=== PATIENT | male | born 1965 | race Caucasian/White ===

== ENCOUNTER → 2017-02-23 | Outpatient (CLI) | payer BC | END | disposition home or self-care (01) | LOC: LAB 09:08 | PROVIDERS: ATTEND Internal Medicine Cardiovascular Disease | DX: R53.81 Other malaise (principal) | CPT/HCPCS: 36415; 84403 ==

== ENCOUNTER → 2017-04-13 | Outpatient (CLI) | payer BC ==
[2017-04-13 12:28] LABS: Basophils # (auto) 0 uL; Basophils % (auto) 0.6 % (0.0-2.0); Eosinophils # (auto) 0.1 uL; Eosinophils % (auto) 2.5 % (0.0-7.0); Hematocrit 53.5 % (41.0-53.0); Lymphocytes # (auto) 1.4 uL; Mean Corpuscular Hemoglobin 30.3 pg (28.0-32.0); Mean Corpuscular Hgb Conc. 33.6 g/dL (32.0-36.0); Mean Platelet Volume 10.4 fL (7.4-10.4); Monocytes # (auto) 0.3 uL; Neutrophils % (auto) 61.9 % (37.0-80.0); Platelet Count (auto) 174 10^3/uL (140-450); White Blood Cell 4.9 10^3/uL (4.4-10.8)
[2017-04-13 12:53] LABS: BUN/Creatinine Ratio 18.1; Bilirubin, Direct 0.1 mg/dL (0-0.2); Bilirubin, Total 0.7 mg/dL (0.2-1.0); Calcium 9.3 mg/dL (8.5-10.1); Potassium 4.3 mmol/L (3.5-5.1); Total Protein 7.7 g/dL (6.4-8.2)
== END | disposition home or self-care (01) ==
LOC: Rad HDHVI 08:06
PROVIDERS: ATTEND Internal Medicine Cardiovascular Disease
DX: I10 Essential (primary) hypertension (principal); E78.00 Pure hypercholesterolemia, unspecified; K74.1 Hepatic sclerosis; E11.9 Type 2 diabetes mellitus without complications; R97.20 Elevated prostate specific antigen [PSA]; R53.81 Other malaise; E03.9 Hypothyroidism, unspecified; D64.9 Anemia, unspecified; E55.9 Vitamin D deficiency, unspecified; N39.0 Urinary tract infection, site not specified
CPT/HCPCS: 36415; 71020; 80048; 80061; 80076; 82306; 83036; 84153; 84403; 84443; 85025; 93306

== ENCOUNTER → 2017-07-11 | Outpatient (CLI) | payer BC ==
[2017-07-11 12:17] LABS: Basophils # (auto) 0 uL; Basophils % (auto) 0.4 % (0.0-2.0); CONDITION Y; DEFINITIVE SEE PRINTOUT; Eosinophils # (auto) 0.2 uL; Hemoglobin 18.9 g/dL (13.5-17.5); Lymphocytes # (auto) 1.8 uL; Lymphocytes % (auto) 29.7 % (10.0-50.0); Mean Corpuscular Hgb Conc. 33.7 g/dL (32.0-36.0); Mean Corpuscular Volume 92.1 fL (80.0-100.0); Mean Platelet Volume 11.1 fL (7.4-10.4); Monocytes # (auto) 0.5 uL; Monocytes % (auto) 8.9 % (0.0-12.0); Neutrophils # (auto) 3.4 uL; Platelet Count (auto) 175 10^3/uL (140-450); Red Cell Distribution Width 13.5 % (11.6-16.0); White Blood Cell 5.9 10^3/uL (4.4-10.8)
== END | disposition home or self-care (01) ==
LOC: LAB 08:49
PROVIDERS: ATTEND Internal Medicine Cardiovascular Disease
DX: R53.81 Other malaise (principal); D64.9 Anemia, unspecified
CPT/HCPCS: 36415; 84403; 85025

== ENCOUNTER → 2017-11-28 | Outpatient (CLI) | payer BC | END | disposition home or self-care (01) | LOC: Rad HDHVI 14:26 | PROVIDERS: ATTEND Internal Medicine Cardiovascular Disease | DX: E29.1 Testicular hypofunction (principal) | CPT/HCPCS: 36415; 84403 ==

== ENCOUNTER → 2018-12-22 | Outpatient (CLI) | payer BC ==
[2018-12-22 12:18] LABS: Eosinophils # (auto) 0.1 uL; Lymphocytes # (auto) 1.4 uL; Monocytes # (auto) 0.5 uL; Nucleated Red Blood Cells % 0.4 %; Red Cell Distribution Width 13.7 % (11.8-14.3)
[2018-12-22 12:19] LABS: Albumin 4.1 g/dL (3.4-5.0)
[2018-12-22 12:21] LABS: Basophils # (auto) 0 uL; Basophils % (auto) 0.6 % (0.0-2.0); Eosinophils % (auto) 2.9 % (0.0-7.0); Hematocrit 51.9 % (41.0-53.0); Hemoglobin 17.9 g/dL (13.5-17.5); Lymphocytes % (auto) 28.1 % (10.0-50.0); Mean Corpuscular Hemoglobin 31.5 pg (28.0-32.0); Mean Corpuscular Hgb Conc. 34.5 g/dL (32.0-36.0); Mean Corpuscular Volume 91.2 fL (80.0-100.0); Monocytes % (auto) 10.1 % (0.0-12.0); Neutrophils # (auto) 2.9 uL; Neutrophils % (auto) 58.3 % (37.0-80.0); Platelet Count (auto) 160 10^3/uL (140-450); Red Blood Cells 5.68 10^6/uL (4.5-5.90)
[2018-12-22 12:26] LABS: BUN/Creatinine Ratio 16.9; Bilirubin, Total 0.5 mg/dL (0.2-1.0); Calcium 9.3 mg/dL (8.5-10.1); Total Protein 7.9 g/dL (6.4-8.2)
[2018-12-22 13:33] LABS: Prostate Specific Antigen 1.09 ng/mL (0.0-4.0)
[2018-12-22 15:13] LABS: Urine Blood Negative /uL (Negative); Urine Specific Gravity 1.023 (1.001-1.035)
== END | disposition home or self-care (01) ==
LOC: Rad HDHVI 08:10
PROVIDERS: ATTEND Internal Medicine Cardiovascular Disease
DX: I20.0 Unstable angina (principal); E03.9 Hypothyroidism, unspecified; E11.9 Type 2 diabetes mellitus without complications; E55.9 Vitamin D deficiency, unspecified; E29.1 Testicular hypofunction; C61 Malignant neoplasm of prostate; D51.9 Vitamin B12 deficiency anemia, unspecified; N39.0 Urinary tract infection, site not specified
CPT/HCPCS: 36415; 80053; 80061; 81003; 82306; 82607; 83036; 84153; 84403; 84439; 84443; 85025; 93306

== ENCOUNTER → 2019-01-01 | Outpatient (CLI) | payer BC | END | disposition home or self-care (01) | LOC: Rad HDHVI 12:20 | PROVIDERS: ATTEND Internal Medicine Cardiovascular Disease | DX: I70.0 Atherosclerosis of aorta (principal) | CPT/HCPCS: 71046 ==

== ENCOUNTER → 2019-03-27 | Outpatient (CLI) | payer BC | END | disposition home or self-care (01) | LOC: LAB 13:22 | PROVIDERS: ATTEND Internal Medicine Cardiovascular Disease | DX: E29.1 Testicular hypofunction (principal) | CPT/HCPCS: 36415; 84403 ==

== ENCOUNTER → 2020-01-29 | Outpatient (CLI) | payer BC | END | disposition home or self-care (01) | LOC: Rad HDHVI 14:17 | PROVIDERS: ATTEND Internal Medicine Cardiovascular Disease | DX: M50.21 Other cervical disc displacement, high cervical region (principal); M40.40 Postural lordosis, site unspecified; M25.78 Osteophyte, vertebrae; M48.02 Spinal stenosis, cervical region | CPT/HCPCS: 72125 ==

== ENCOUNTER → 2020-01-30 | Outpatient (CLI) | payer BC ==
[2020-01-30 11:48] LABS: Basophils # (auto) 0 10 ^3/uL (0-0.2); Basophils % (auto) 0.8 % (0.0-2.0); Eosinophils # (auto) 0.3 10 ^3/uL (0-0.8); Eosinophils % (auto) 4.7 % (0.0-7.0); Hematocrit 48.7 % (41.0-53.0); Hemoglobin 16.6 g/dL (13.5-17.5); Lymphocytes # (auto) 1.8 10 ^3/uL (0.4-5.4); Lymphocytes % (auto) 30.9 % (10.0-50.0); Mean Corpuscular Hgb Conc. 34.1 g/dL (32.0-36.0); Mean Corpuscular Volume 90.7 fL (80.0-100.0); Monocytes # (auto) 0.7 10 ^3/uL (0-1.3); Monocytes % (auto) 11.7 % (0.0-12.0); Neutrophils # (auto) 2.9 10 ^3/uL (1.6-8.6); Neutrophils % (auto) 51.9 % (37.0-80.0); Nucleated Red Blood Cells % 0.4 %; Platelet Count (auto) 157 10^3/uL (140-450); Red Blood Cells 5.37 10^6/uL (4.5-5.90); Red Cell Distribution Width 13.6 % (11.8-14.3); White Blood Cell 5.7 10^3/uL (4.4-10.8)
[2020-01-30 11:52] LABS: Urine Blood Negative /uL (Negative); Urine Specific Gravity 1.026 (1.001-1.035)
[2020-01-30 12:09] LABS: Albumin 3.9 g/dL (3.4-5.0); Calcium 8.9 mg/dL (8.5-10.1); Potassium 3.8 mmol/L (3.5-5.1)
[2020-01-30 12:13] LABS: Free T4 (Free Thyroxine) 0.86 ng/dL (0.89-1.76); Prostate Specific Antigen 0.76 ng/mL (0.0-4.0)
[2020-01-30 12:15] LABS: Bilirubin, Total 0.5 mg/dL (0.2-1.0); Total Protein 7.8 g/dL (6.4-8.2)
== END | disposition home or self-care (01) ==
LOC: LAB 08:45
PROVIDERS: ATTEND Internal Medicine Cardiovascular Disease
DX: Z00.00 Encounter for general adult medical examination without abnormal findings (principal); E03.9 Hypothyroidism, unspecified; K90.9 Intestinal malabsorption, unspecified; C61 Malignant neoplasm of prostate; E29.1 Testicular hypofunction; N39.0 Urinary tract infection, site not specified; D51.9 Vitamin B12 deficiency anemia, unspecified; Z79.899 Other long term (current) drug therapy
CPT/HCPCS: 36415; 80053; 80061; 81003; 82306; 82607; 83036; 84153; 84403; 84439; 84443; 85025

== ENCOUNTER → 2021-01-20 | Outpatient (CLI) | payer OTHER | END | disposition home or self-care (01) | LOC: Rad HDHVI 10:04 | PROVIDERS: ATTEND Internal Medicine Cardiovascular Disease | DX: S22.32XA Fracture of one rib, left side, initial encounter for closed fracture (principal); M47.814 Spondylosis without myelopathy or radiculopathy, thoracic region; M51.34 Other intervertebral disc degeneration, thoracic region; N28.1 Cyst of kidney, acquired; I70.0 Atherosclerosis of aorta; J98.11 Atelectasis; N20.0 Calculus of kidney; M50.31 Other cervical disc degeneration, high cervical region; M48.02 Spinal stenosis, cervical region; M25.78 Osteophyte, vertebrae; M47.812 Spondylosis without myelopathy or radiculopathy, cervical region; M54.9 Dorsalgia, unspecified; X58.XXXA Exposure to other specified factors, initial encounter; Y93.89 Activity, other specified; Y92.89 Other specified places as the place of occurrence of the external cause; Y99.8 Other external cause status | CPT/HCPCS: 72125; 72128 ==

== ENCOUNTER → 2021-01-21 | Outpatient (CLI) | payer OTHER | END | disposition home or self-care (01) | LOC: Rad HDHVI 14:14 | PROVIDERS: ATTEND Internal Medicine Cardiovascular Disease | DX: I51.7 Cardiomegaly (principal); R07.89 Other chest pain; R06.02 Shortness of breath | CPT/HCPCS: 93306 ==

== ENCOUNTER → 2021-01-26 | Outpatient (CLI) | payer OTHER ==
[2021-01-26 12:47] LABS: Potassium 4.3 mmol/L (3.5-5.1)
[2021-01-26 12:54] LABS: Free T4 (Free Thyroxine) 0.84 ng/dL (0.89-1.76); Prostate Specific Antigen 0.77 ng/mL (0.0-4.0)
[2021-01-26 13:00] LABS: Albumin 3.9 g/dL (3.4-5.0); BUN/Creatinine Ratio 18.9; Bilirubin, Total 0.5 mg/dL (0.2-1.0); Calcium 9.1 mg/dL (8.5-10.1); Total Protein 7.4 g/dL (6.4-8.2)
[2021-01-26 13:18] LABS: Basophils # (auto) 0 10 ^3/uL (0-0.2); Basophils % (auto) 0.5 % (0.0-2.0); Eosinophils # (auto) 0.3 10 ^3/uL (0-0.8); Eosinophils % (auto) 2.8 % (0.0-7.0); Hematocrit 48.8 % (41.0-53.0); Hemoglobin 16.8 g/dL (13.5-17.5); Lymphocytes # (auto) 1.4 10 ^3/uL (0.4-5.4); Lymphocytes % (auto) 14.9 % (10.0-50.0); Mean Corpuscular Hemoglobin 30.9 pg (28.0-32.0); Mean Corpuscular Hgb Conc. 34.4 g/dL (32.0-36.0); Mean Corpuscular Volume 89.9 fL (80.0-100.0); Monocytes # (auto) 0.7 10 ^3/uL (0-1.3); Monocytes % (auto) 7.5 % (0.0-12.0); Neutrophils # (auto) 6.9 10 ^3/uL (1.6-8.6); Neutrophils % (auto) 74.3 % (37.0-80.0); Nucleated Red Blood Cells % 0.3 %; Platelet Count (auto) 163 10^3/uL (140-450); Red Blood Cells 5.43 10^6/uL (4.5-5.90); Red Cell Distribution Width 13.4 % (11.8-14.3); White Blood Cell 9.3 10^3/uL (4.4-10.8)
[2021-01-26 13:35] LABS: Urine Blood Negative /uL (Negative); Urine Specific Gravity 1.016 (1.001-1.035)
== END | disposition home or self-care (01) ==
LOC: LAB 09:33
PROVIDERS: ATTEND Internal Medicine Cardiovascular Disease
DX: C61 Malignant neoplasm of prostate (principal); D51.3 Other dietary vitamin B12 deficiency anemia; I10 Essential (primary) hypertension; E11.9 Type 2 diabetes mellitus without complications; E55.9 Vitamin D deficiency, unspecified; D64.9 Anemia, unspecified; R00.2 Palpitations; R53.1 Weakness; R30.0 Dysuria
CPT/HCPCS: 36415; 80053; 80061; 81003; 82306; 82607; 83036; 84153; 84403; 84439; 84443; 85025

== ENCOUNTER 2024-03-21 02:29 | Emergency (ER) | payer BC, OTHER ==
[~2024-03-21] VITALS: Ht 188 cm; Wt 100.0 kg
[2024-03-21] MEDS: ONDANSETRON ODT 4 MG TAB PO ONE (03:02)
[2024-03-21] MEDS: MORPHINE SULFATE 4 MG/ML SYR/VIAL IM ONE (03:02)
[2024-03-21 03:31] LABS: Basophils # (auto) 0.1 10 ^3/uL (0-0.2); Basophils % (auto) 0.6 % (0.0-2.0); Eosinophils # (auto) 0.1 10 ^3/uL (0-0.8); Eosinophils % (auto) 1.1 % (0.0-7.0); Hematocrit 52.3 % (41.0-53.0); Lymphocytes % (auto) 18.1 % (10.0-50.0); Mean Corpuscular Hemoglobin 30.8 pg (28.0-32.0); Mean Corpuscular Hgb Conc. 34.3 g/dL (32.0-36.0); Mean Corpuscular Volume 89.9 fL (80.0-100.0); Monocytes % (auto) 8.5 % (0.0-12.0); Neutrophils # (auto) 8.1 10 ^3/uL (1.6-8.6); Neutrophils % (auto) 71.7 % (37.0-80.0); Nucleated Red Blood Cells % 0.1 %; Red Blood Cells 5.82 10^6/uL (4.5-5.90); Red Cell Distribution Width 13.1 % (11.8-14.3); White Blood Cell 11.3 10^3/uL (4.4-10.8)
[2024-03-21 03:42] LABS: Alanine Aminotransferase 70 U/L (7-40); Albumin 4.6 g/dL (3.2-4.8); Alkaline Phosphatase 101 U/L (46-116); Anion Gap 9 (5-15); Aspartate Aminotransferase 31 U/L (13-40); BUN/Creatinine Ratio 9.1 (10.0-20.0); Blood Urea Nitrogen 11 mg/dL (9-23); Carbon Dioxide 24 mmol/L (20-30); Chloride 105 mmol/L (98-107); Glucose 117 mg/dL (74-106); Potassium 3.8 mmol/L (3.5-5.1); Sodium 138 mmol/L (136-145)
[2024-03-21 03:43] LABS: Bilirubin, Total 0.8 mg/dL (0.2-1.0); Total Protein 7.8 g/dL (5.7-8.2)
[2024-03-21 03:47] LABS: Urine Bacteria None Seen /hpf (None Seen)
[2024-03-21 03:56] LABS: Urine Blood TRACE /uL (Negative); Urine Clarity Clear (Clear); Urine Color Yellow (Yellow); Urine Mucus FEW (None Seen); Urine Protein, UAD TRACE (Negative); Urine Urobilinogen Normal (Negative); Urine WBC 2 /hpf (0 - 3); Urine pH 7.5 (5.0-9.0)
[2024-03-21] MEDS: TAMSULOSIN HYDROCHLORIDE 0.4 MG CAP PO ONE (10:33)
[2024-03-21] MEDS: KETOROLAC TROMETH 30 MG/ML 1ML VIAL IV ONE (10:50)
[2024-03-21] MEDS: METOCLOPRAMIDE HCL 5MG/ml INJ 2ml VIAL IV ONE (10:50)
[2024-03-21] MEDS ORDERED: DICL50TA2 PO (12:56)
[2024-03-21] MEDS ORDERED: HYDR-4902 PO (12:56)
[2024-03-21 13:19] VITALS: BP 135/88; PULSE 97; RESP 17; TEMP 98.6; O2SAT 95
== END 2024-03-21 13:23 | disposition home or self-care (01) ==
LOC: ER 02:29 → EDBD 02:29 → ER 13:23
DX: N20.1 Calculus of ureter (principal); E83.52 Hypercalcemia; K76.0 Fatty (change of) liver, not elsewhere classified; N40.0 Benign prostatic hyperplasia without lower urinary tract symptoms; Z87.891 Personal history of nicotine dependence
CPT/HCPCS: 36415; 74176; 80053; 81001; 85025; 96372; 96374; 96375; 99285; J1885; J2270; J2765; Q0162

== ENCOUNTER → 2025-01-11 | Outpatient (CLI) | payer BC ==
[~2025-01-11] MED LIST: DICL50TA2 PO; HYDR-4902 PO
== END | disposition home or self-care (01) ==
LOC: Rad HDHVI 08:17
PROVIDERS: ATTEND Internal Medicine Cardiovascular Disease
DX: I11.9 Hypertensive heart disease without heart failure (principal); R06.02 Shortness of breath
CPT/HCPCS: 93306

== ENCOUNTER → 2025-02-11 | Outpatient (CLI) | payer BC ==
[~2025-02-11] VITALS: Ht 188 cm; Wt 104.3 kg
--- NOTE | 2025-02-15 13:10 | DVHSR ---
APPROVED REPORT Exam: Nuclear Stress Test Indication: Dyspnea Ht: 6 ft 2 in Wt: 230 lbs BSA: 2.31 m2 HR: 73 bpm BP: 92/58 mmHg BMI: 29.52 Rhythm: NSR Medical History Medical History: HTN, Hypercholesterolemia Medications: Flomax, Omeprazole, Xanax, Ativan, Synthroid, Cyclobenzaprine, Ibuprofen, Percocet, Viag ra Allergies: No known drug allergies Stress Test Details Stress Test: Exercise stress testing was performed using a Reid protocol. HR Resting HR: 73 bpmMax Heart Rate (APMHR): 163.001881 bpm Max HR Achieved: 142 bpmTarget HR (85% APMHR): 138.374464 bpm % of APMHR: 87.12 Recovery HR: 86 bpm HR response to stress: Normal HR response to stress BP Resting BP: 92/58 mmHg Max BP: 166/85 mmHg Recovery BP: 121/68 mmHg BP response to stress: Normal blood pressure response to stress. ECG Resting ECG: Sinus Rhythm Stress ECG: Sinus Tachycardia Arrhythmia: PACs, PVCs Recovery ECG: Sinus Rhythm Clinical Reason for Termination: Target HR achieved Stress Symptoms: None Exercise duration: 8 min 26 sec Exercise capacity: 10.1 METs Stress ECG Conclusion NON ISCHEMIC CLINICAL RESPONSE NON ISCHEMIC ECG RESPONSE NO PERFUSION DEFECT NOTED DURING STRESS CARDIOLITE EF >55% LESS THAN 10% LIKELIHOOD FOR STRESS INDUCED ISCHEMIA NM EXAM: Myocardial Perfusion REST/STRESS Imaging Protocol: Rest Tc-99m/Stress Tc-99m 1 day Resting Data Rest SPECT myocardial perfusion imaging was performed in supine position 30 minutes following the int ravenous injection of 10.79 mCi of Tc-99m Sestamibi. Time of rest injection: 818 Date: 02/11/2025 Time of rest imagin Date: 02/11/2025 Administration Route: IV Administration Site: Left AC Exercise Stress At peak stress, the patient was injected intravenously with 33 mCi of Tc-99m Sestamibi. Time of stress injection: 934 Date: 02/11/2025 Time of stress imagin Date: 02/11/2025 Administration Route: IV Administration Site: Left AC Heart Rate at time of stress injection: 141 bpm. Patient continued to exercise for 1 minute(s). Gated Stress SPECT was performed 15 minutes after stress injection. The images were gated to evaluate regional wall motion and calculate left ventricular ejection fracti on. Comments Cardiolite injection at 7 minutes, 37 seconds into test. Study Data Post stress, the left ventricular ejection was 58%.. Nuclear Conclusion NON ISCHEMIC CLINICAL RESPONSE NON ISCHEMIC ECG RESPONSE NO PERFUSION DEFECT NOTED DURING STRESS CARDIOLITE EF >55% LESS THAN 10% LIKELIHOOD FOR STRESS INDUCED ISCHEMIA
== END | disposition home or self-care (01) ==
LOC: Rad HDHVI 08:05
PROVIDERS: ATTEND Internal Medicine Cardiovascular Disease
DX: I49.1 Atrial premature depolarization (principal); I49.3 Ventricular premature depolarization; R00.0 Tachycardia, unspecified; R06.00 Dyspnea, unspecified; I11.0 Hypertensive heart disease with heart failure; I50.33 Acute on chronic diastolic (congestive) heart failure; E78.00 Pure hypercholesterolemia, unspecified; R06.02 Shortness of breath
CPT/HCPCS: 78452; 93017; A9500; 96374

== ENCOUNTER 2025-05-06 10:26 | Outpatient (CLI) | payer BC ==
--- NOTE | 2025-05-06 12:31 | DVH ---
EXAM: XY R FOOT 3 VIEW XRAY CLINICAL INDICATION: FOOT PAIN TECHNIQUE: XY R FOOT 3 VIEW XRAY Comparison: None FINDINGS/IMPRESSION: There is no evidence of acute fracture or dislocation. Surgical screws in the 1st digit. The alignment is anatomical. There is no radiopaque foreign body.
== END 2025-05-06 17:00 | disposition home or self-care (01) ==
LOC: Rad HDHVI 10:26
PROVIDERS: ATTEND Internal Medicine Cardiovascular Disease
DX: M79.671 Pain in right foot (principal)
CPT/HCPCS: 73630